=== PATIENT | female | born 1990 | race Caucasian/White ===

== ENCOUNTER 2021-10-05 13:40 | Inpatient (IN) | payer OTHER, SELFPAY ==
--- NOTE | 2021-09-29 17:01 | HP.PCM_ITS ---
History and Physical Date of Admission: 10/05/21 HPI: The patient is a 31 year old female presenting for pre-operative visit. She is scheduled for , for 39 weeks, previous c/s on 10/05/21. Procedure discussed along with risks, benefits and complications. Other alternatives discussed for management. Consent form signed? Yes. ? ? PAST MEDICAL HISTORY PAST MEDICAL HISTORY Diagnosis Date ? Mitral valve prolapse ? ? depression ? ? ? PAST SURGICAL HISTORY PAST SURGICAL HISTORY Procedure Laterality Date ? DELIVERY ONLY ? 11/19/2015 ? , low transverse ? PAST SURGICAL HISTORY OF ? ? ? tubes in both ears ? PAST SURGICAL HISTORY OF ? ? ? wisdom teeth ? REVISE MEDIAN N/CARPAL TUNNEL SURG Right 08/2019 ? ? ? CURRENT MEDICATIONS Current Outpatient Medications Medication Sig Dispense Refill ? loratadine (CLARITIN ORAL) Take by mouth. ? ? ? multivitamin (CLASSIC ) 28 mg iron- 800 mcg tab(s) Take 1 tablet by mouth once daily. ? ? ? sertraline (ZOLOFT) 50 mg tablet Take 1 tablet by mouth once daily. 30 tablet 5 ? No current facility-administered medications for this visit. ? ? ALLERGIES: Patient has no known allergies. ? PERSONAL HISTORY: SOCIAL HISTORY Social History ? Tobacco Use ? Smoking status: Never Smoker ? Smokeless tobacco: Never Used Vaping Use ? Vaping Use: Never used Substance Use Topics ? Alcohol use: Yes ? ? Comment: not while ? Drug use: No ? FAMILY HISTORY: FAMILY HISTORY FAMILY HISTORY Problem Relation Age of Onset ? other (IBS) Mother ? ? Hypertension Father ? ? Depression Brother ? ? Alcohol abuse Brother ? ? Heart Maternal Grandmother ? ? Heart Maternal Grandfather ? ? other (bladder cancer) Maternal Grandfather ? ? Cataract Maternal Grandfather ? ? No Known Problems Paternal Grandmother ? ? No Known Problems Paternal Grandfather ? ? No Known Problems Daughter ? ? ? REVIEW OF SYMPTOMS: GENERAL: denies fevers or chills ENDOCRINOLOGY: has not been on steroids Cardiology : denies palpitations or chest pain Respiratory: denies SOB or cough Hematology: denies history of prolonged bleeding or easy bruising or VTE Allergy: Denies history of personal or family history of allergy to anesthesia ? PHYSICAL EXAMINATION: ? VITALS: Blood pressure 120/70, weight 279 lb 3.2 oz (126.6 kg), last menstrual period 01/05/2021. ? GENERAL: The patient is well nourished, well hydrated in no acute distress. , The patient is oriented to time, place, and person. NECK: Supple. No lynphadenopathy, normal thyroid, no thyromegaly. LUNGS: Clear to auscultation bilaterally. no wheezes, rhonchi or rales HEART: Regular rate and rhythm, Normal heart sounds and No murmurs or gallops ABD-soft, nontender, gravid, approp. for gestational age ? ? IMPRESSION: Estimated Date of Delivery: 10/12/21 w/ h/o previous c/s ? PLAN: The risks/benefits/alternatives and personal involved for the planned c- section were reviewed with the patient. Her questions were answered to her satisfaction and she desires to proceed. Consent was signed. I reviewed with her postop instructions and expectations. ? ? I have reviewed and updated past medical and surgical history, medications and allergies Assessment & Plan Assessment/Plan (1) 39 weeks gestation of : (2) Maternal obesity syndrome in third trimester: (3) Adult BMI 45.0-49.9 kg/sq m: (4) Previous section complicating :
[2021-10-05] VITALS (12 sets, daily range): BP systolic 112–145; BP diastolic 54–94; PULSE 83–96; RESP 16–96; TEMP 36.6–37.4; O2SAT 96–99; BMI 48.8
[2021-10-05] MEDS: Lactated Ringers 1,000 ML 999 ML IV (14:45)
[2021-10-05 15:02] LABS: Absolute Lymphocyte Count 1.71 X10^3/uL (0.83-4.51); Absolute Neutrophil Count 7.8 X10^3/uL (2.0-7.7); Basophil# 0.02 X10^3/uL; Basophil% 0.2 % (0-1); Eosinophil# 0.05 X10^3/uL; Eosinophils% 0.5 % (0-5); Hematocrit 37.3 % (37-47); Hemoglobin 12.8 g/dL (12.0-15.0); Lymphocyte # 1.71 X10^3/ul (0.83-4.51); Lymphocyte % 16.3 % (19-41); Mean Corp Hgb Conc 34.3 g/dL (32-36); Mean Corpuscular Hgb 30.7 pg (27.0-32.0); Mean Corpuscular Volume 89.4 fL (81-99); Mean Platelet Vol. 12.7 fl (6.2-12.0); Monocyte# 0.86 X10^3/uL; Monocyte% 8.2 % (0-10); NRBC Flagged by Analyzer 0 % (0-5); Neutrophil # 7.78 X10^3/uL (2.7-7.7); Neutrophil % 74.1 % (47-70); Platelet Count 151 K/mm3 (150-450); RBC Distribution Width CV 13.3 % (11.6-14.6); RBC Distribution Width SD 43.9 fl (35.1-43.9); Red Blood Count 4.17 M/mm3 (4.2-5.4); White Blood Count 10.5 K/mm3 (4.4-11.0)
[2021-10-05] MEDS: Acetaminophen 500 MG Tablet 1000 MG PO ×2 (16:02→22:15)
[2021-10-05] MEDS: Sodium Citrate/Citric Acid 30 ML UDC PO (16:03)
[2021-10-05] MEDS: Lactated Ringers 1,000 ML 150 ML IV (16:46)
--- NOTE | 2021-10-05 17:43 | EX.PCM.OBRPT ---
Assessment & Plan (1) 39 weeks gestation of : (2) Maternal obesity syndrome in third trimester: (3) Adult BMI 45.0-49.9 kg/sq m: (4) Previous section complicating : Maternal Data Information Final SAMMY: 10/12/21 Gestational age: 39 0/7 Details Operative Information Date of Procedure: 10/05/21 Pre-Operative Diagnosis: 39 weeks, previous c/s Post-Operative Diagnosis: same Indications for : Repeat Elective Classification: Scheduled Procedure Type: low transverse sample clerk #1: Hawa Mcdowell Type of Anesthesia: Spinal Anesthesiologist: Anders Paige Antibiotic Given: Ancef 3 grams IV x1 Drain: Toscano to straight drain Estimated Blood Loss: 800 Fluids Replaced: 800 Procedure Start Time: 17:19 Procedure Stop Time: 17:48 Time of Delivery: 17:21 Findings Description of Procedure: The patient was taken to the operating room. She was prepped and draped in the dorsal supine position with a leftward tilt. A Pfannenstiel skin incision was made approximately 2 cm above the symphysis pubis and carried through to underlying layer fascia with the scalpel. The fascia was incised incised in the midline and extended laterally with the Garcia scissors. The fascia was dissected off the rectus muscles with blunt and sharp dissection. The rectus muscles were in the midline and the peritoneum was entered bluntly. The peritoneal incision was stretched and the bladder blade was placed. The uterine incision was made in a low transverse fashion with the scalpel and extended superiorly and inferiorly with blunt dissection. The amniotic membranes were ruptured bluntly and clear amniotic fluid returned. The infant's head was brought to the incision in the flexed position and delivered without difficulty. The remainder of the was delivered with gentle traction and fundal pressure in the standard fashion. The mouth and nares were bulb suctioned. The cord was clamped and cut as the infant was stimulated. Cord clamping was delayed. The infant was handed off to the waiting nursing staff. The placenta was delivered with fundal massage and gentle traction in the standard fashion. The uterus was exteriorized and cleared of all clots and debris. The cervix was dilated with a ring forcep. The uterine incision was closed with #1 Vicryl in a running locked fashion. A second layer of the same suture was used in an imbricating fashion. The incision was examined and was found to be hemostatic. The uterus was placed back into the peritoneal cavity and hemostasis was again confirmed. The rectus muscles were examined and any bleeding was Bovie cauterized. The parietal peritoneum and rectus muscles were closed en bloc with an 0 Vicryl running suture. The surgical teams outer gloves were then changed. The rectus fascia was examined and any bleeding was Bovie cauterized and the rectus fascia was closed with 0 PDS suture in a running standard fashion. The subcutaneous tissue was examining and any bleeding was Bovie cauterized. The subcutaneous tissue was reapproximated with 3-0 Vicryl suture. The skin was closed in a subcuticular fashion by the HEAD BANQUET WAITRESS with me present in the labor and delivery suite. I performed the remainder of the procedure with assistance. All sponge, lap, and needle counts were correct. The patient was taken to her room for recovery in a stable condition. Presentation: Positive for Vertex Amniotic Membrane Rupture Type: Artificial Amniotic Fluid Description: Clear Placental Delivery Description: Spontaneous Placenta Disposition: [facility] Cord Vessel Description: 3 Vessels Cord Entanglement: None A Gender: Female (Chandni, 8lb 6oz) (1 minute): 8 (5 minute): 9 Delayed Cord Clamping: Yes Complications Complications: none Admit VTE Documentation VTE Present on Admission: No VTE Mechan Device Prophylaxis: SCD's VTE Pharm Prophylaxis Ordered: Yes
[2021-10-05] MEDS: Oxytocin 30 units/NS 500 ml 30 UNITS/500 ML IV.SOLN 167 UNITS IV (18:50)
[2021-10-05] MEDS: Ketorolac 30 MG/ML Syringe IV (19:01)
[2021-10-05] MEDS: HYDROmorphone 1 MG/ML Syringe IV (19:02)
--- NOTE | 2021-10-05 19:41 | NURSING ---
Uterus right of midline consistently. Pt states she carried baby off to the right. garner patent and draining, lochia moderate. Will continue to monitor.
[2021-10-05] MEDS: Lactated Ringers 1,000 ML 100 ML IV (21:50)
[2021-10-05] MEDS: Sertraline 100 MG Tablet PO (22:15)
[2021-10-06] VITALS: BP 115/68; PULSE 72; RESP 18; TEMP 36.6; O2SAT 98
[2021-10-06] MEDS: Ketorolac 30 MG/ML Syringe IV ×3 (00:34→13:07)
[2021-10-06 01:40] VITALS: BP 118/63; PULSE 82; RESP 16; TEMP 36.6; O2SAT 97
[2021-10-06] MEDS: Acetaminophen 500 MG Tablet 1000 MG PO ×4 (04:43→23:00)
[2021-10-06 04:45] VITALS: BP 143/76; PULSE 85; RESP 18; TEMP 36.6
[2021-10-06 05:11] LABS: Hematocrit 34.4 % (37-47); Hemoglobin 11.5 g/dL (12.0-15.0); Mean Corp Hgb Conc 33.4 g/dL (32-36); Mean Corpuscular Volume 92.7 fL (81-99); Mean Platelet Vol. 12.8 fl (6.2-12.0); Platelet Count 117 K/mm3 (150-450); RBC Distribution Width CV 13.5 % (11.6-14.6); RBC Distribution Width SD 45.5 fl (35.1-43.9); Red Blood Count 3.71 M/mm3 (4.2-5.4); White Blood Count 12.5 K/mm3 (4.4-11.0)
[2021-10-06] MEDS: Enoxaparin 40 MG/0.4 ML Syringe SC ×2 (06:04→19:04)
[2021-10-06] MEDS: 0.9% Saline Lock 10 ML Syringe IV ×2 (07:07→13:07)
[2021-10-06 08:00] VITALS: BP 135/73; PULSE 88; RESP 18; TEMP 37.3
--- NOTE | 2021-10-06 08:19 | PN.OBGYN_ITS ---
Subjective Subjective Patient seen at bedside. Resting comfortably. Ambulating and voiding without difficulty. Passing flatus. Breast feeding without difficulty. Denies headache, dizziness, SOB or CP. Desires discharge home tomorrow. Objective Data Objective Data Vital Signs: Vital Signs Temp Pulse Resp BP Pulse Ox O2 Del Method 99.2 F H 88 18 135/73 H 97 Room Air 10/06/21 08:00 10/06/21 08:00 10/06/21 08:00 10/06/21 08:00 10/06/21 01:40 10/06/21 08:00 Oxygen Delivery Method Room Air Weight: 275 lb 9.245 oz Body Mass Index (BMI) 48.8 Intake & Output: Intake and Output for Last 24 Hours 10/04/21 10/05/21 10/06/21 23:59 23:59 23:59 Intake Total 3016 / 3016 366.67 / 366.67 Output Total 450 / 450 400 / 400 Balance 2566 / 2566 -33.33 / -33.33 Lab / Micro Data Result Diagrams: 10/06/21 04:55 Labs: Laboratory Results - last 24 hr 10/05/21 14:45: WBC 10.5, RBC 4.17 L, Hgb 12.8, Hct 37.3, MCV 89.4, MCH 30.7, MCHC 34.3, RDW Std Deviation 43.9, RDW Coeff of Johnson 13.3, Plt Count 151, MPV 12.7 H, Immature Gran % (Auto) 0.700, Neut % (Auto) 74.1 H, Lymph % (Auto) 16.3 L, [place] % (Auto) 8.2, Eos % (Auto) 0.5, Baso % (Auto) 0.2, Absolute Neuts (auto) 7.8 H, Absolute Lymphs (auto) 1.71, Nucleated RBC % 0 10/05/21 14:45: Blood Type A POSITIVE, Antibody Screen NEGATIVE 10/06/21 04:55: WBC 12.5 H, RBC 3.71 L, Hgb 11.5 L, Hct 34.4 L, MCV 92.7, MCH 31.0, MCHC 33.4, RDW Std Deviation 45.5 H, RDW Coeff of Johnson 13.5, Plt Count 117 L, MPV 12.8 H ROS Eyes Eyes: Denies blurry vision, change in vision or spots in vision ENT HEENT: Denies dizziness or headache(s) Cardiovascular Cardiovascular: Denies abdominal pain, chest pain or dyspnea Respiratory/Chest Respiratory/Chest: Denies cough, dyspnea, shortness of breath at rest or shortness of breath with exertion Gastrointestinal Gastrointestinal: Denies abdominal pain, diarrhea or vomiting Genitourinary Genitourinary: Denies change in urinary stream, difficulty urinating or dysuria Musculoskeletal Musculoskeletal: Reports none Integumentary Integumentary: Denies rash Neurologic Neurologic: Denies dizziness, headache(s), memory loss or weakness Physical Exam Narrative Dressing is dry and intact Const alert and no apparent distress General Appearance: cooperative and comfortable Exam Limitations: no limitations HEENT normocephalic Eyes General Eye: normal appearance of both eyes Neck full ROM General: normal visual inspection Chest Chest: symmetrical chest wall rise Resp normal respiratory effort and normal air movement Effort and Inspection: symmetric chest movement Auscultation: clear to auscultation bilaterally Cardio regular rate and regular rhythm GI normal to inspection, nondistended, normoactive bowel sounds Back/Spine normal ROM Extremity full ROM and no calf tenderness General Extremity: normal exam except as noted Skin no rashes or lesions noted Neuro CN's II-XII intact bilaterally Psych mental status grossly normal Assessment & Plan (1) Status post repeat low transverse section: (2) Mother currently breast-feeding: (3) Adult BMI 45.0-49.9 kg/sq m: PLAN: Plan POD 1 Repeat C/S Routine care Pain control Ambulation Anticipate discharge home tomorrow
[2021-10-06] MEDS: Senna/Docusate Sodium 1 Tablet PO (10:17)
[2021-10-06 11:20] VITALS: BP 124/72; PULSE 75; RESP 18; TEMP 36.8
--- NOTE | 2021-10-06 12:57 | CM.ED ---
Addendum entered by Carly Burt 10/06/21 15:28: Housing: DANNY, NETO and 2 children reside in a house in [facility]. Transportation: DANNY has access to transportation Supplies: DANNY reports she has all nb supplies including bassinet, crib, carseat, diapers etc. Supports: DANNY reports her supports are her and mother. DANNY's mother resides 1 hour away. NETO's mother resides 20 minutes away and patient said that she has supportive friends who have arranged for meals trains for them when she is discharged home. Education Level: DANNY graduated high school and college. NO learning issues or delays. 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 DANNY will take 4 weeks off during the summer and 8 weeks off when the school year begins. DANNY reports she enjoys her job. Agency Involvement: DANNY reports No JFS, WIC, HMG, Legal or CSB issues. DANNY reports that she has gone to counseling in the past in regards to anxiety concerns for a few months. DANNY said that she went to [facility] in [place] and it was a positive experience. 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 DANNY reports after her first child she felt everything was too much and feeling overwhelmed. DANNY reported that the fob had returned to work and she was alone and anxious about caring for a . MOB said now I know how to do it and the FOB is taking 4 weeks off work to help with the nb. MOB denied SI/HI. DANNY has been on Zoloft for 6 years and reports it is helpful. She plans to continue to take Zoloft . MOB and FOB were educated on PPD, safe sleeping and Shaken Baby syndrome. MOB reports alcohol when not as she drinks wine occasionally. MOB denied any other drug use including nicotine. MOB was bright and reactive. MOB appeared comfortable with the nb and bonding appropriately. No concerns voiced or expressed. Plan: Home at discharge Carly MATUTE Original Note: SALLIE Note Referral Source: Referrral Reason: History of post depression and anxiety SW met with MOB and FOB. MOB gave verbal consent to speak to her in the presence of the FOB. Mom: Grecia PNC: HIEN Bradshaw Control: IUD Baby: Rena Mcgee : 10/05/[birth year] Weight: 8 # 6 ounces Steel Shot Header Operator: ROMMEL Kaur Breast feeding the nb which MOB reports is going good. MOB/FOB's other children: Kain, born in 2015
[2021-10-06] MEDS: Naproxen 500 MG Tablet PO (19:04)
[2021-10-06 20:00] VITALS: BP 141/72; PULSE 91; RESP 16; TEMP 37.4; O2SAT 97
[2021-10-06] MEDS: Sertraline 100 MG Tablet PO (22:57)
[2021-10-07 02:00] VITALS: BP 145/87; PULSE 73; RESP 17; TEMP 36.6; O2SAT 96
[2021-10-07] MEDS: Naproxen 500 MG Tablet PO ×2 (03:03→11:25)
[2021-10-07] MEDS: Acetaminophen 500 MG Tablet 1000 MG PO ×2 (05:03→11:25)
[2021-10-07] MEDS: Enoxaparin 40 MG/0.4 ML Syringe SC (06:28)
--- NOTE | 2021-10-07 09:03 | PCM.DC.SUM ---
Providers Date of Admission: 10/05/21 Primary Care Physician: No Primary Care Phys Reason For Visit: Diagnosis Discharge Diagnosis (1) Status post repeat low transverse section: Status: Acute Code(s): Z98.891 - History of uterine scar from previous surgery Medications at Discharge Home Medications vits,calcium no.78-iron fumarate-folic acid 29 mg-1 mg tablet (Prenatabs FA) 1 tab PO DAILY Check with primary doctor 11/18/15 loratadine 10 mg tablet (Claritin) 10 mg PO DAILY PRN Allergy Symptoms 10/05/21 sertraline 100 mg tablet 1 tab PO DAILY Check with primary doctor 10/05/21 oxycodone 5 mg tablet 5 - 10 mg PO Q4H PRN PRN Pain Score 4-10 3 days #10 tabs 10/07/21 Hospital Course Operations section Summary of Care Provided Hospital Course: Patient here for scheduled repeat section. Hospital course was uneventful. Physical Exam Narrative Dressing with small amount of drainage. Const alert and no apparent distress General Appearance: cooperative and comfortable Exam Limitations: no limitations HEENT normocephalic Eyes General Eye: normal appearance of both eyes Neck full ROM General: normal visual inspection Chest Chest: symmetrical chest wall rise Resp normal respiratory effort and normal air movement Effort and Inspection: symmetric chest movement Auscultation: clear to auscultation bilaterally Cardio regular rate and regular rhythm GI normal to inspection, nondistended, normoactive bowel sounds Back/Spine normal ROM Extremity full ROM and no calf tenderness General Extremity: normal exam except as noted Skin no rashes or lesions noted Neuro CN's II-XII intact bilaterally Psych mental status grossly normal Weight / BMI Weight Weight: 275 lb 9.245 oz Body Mass Index (BMI) 48.8 ABG / Lab / Microbiology Data Result Diagrams: 10/06/21 04:55 D/C Instructions Discharge Diet: No restrictions Discharge Activity: May Not Drive (2 weeks) and May Shower Weight Bearing Status: Weight bearing as tolerated Call your doctor if your incision/area has: Continuous Slow Oozing and Increased Redness Call your doctor if you observe: Fever of 101 or Higher, Inability to urinate, Inability to have a bowel movement, Using more than 1 pad per hour, Shortness of breath, Chest pain, Calf discomfort and Uncontrolled pain Remove Dressing in: 1 week (Come to office) Cleanse incision/area with: Soap & Water Please Follow Up With: Angela Bradshaw MD When: 1 week in office for incision check Meaningful Use Info Meaningful Use Diagnoses (Choose all that apply): None applicable Discharge Plan Admission Admit Date/Time: 10/05/21 13:40 Primary Reason for Your Visit: Repeat Section Attending Provider: Angela Bradshaw Primary Care Provider: Care Physician,No Primary Discharge Orders/Prescriptions Prescriptions: New oxycodone 5 mg Tablet 5 - 10 mg PO Q4H PRN PRN (Reason: Pain Score 4-10) 3 Days Qty: 10 0RF Continued Prenatabs FA 1 TABLET tablet 1 tab PO DAILY sertraline 100 mg tablet 1 tab PO DAILY loratadine [Claritin] 10 mg Tablet 10 mg PO DAILY PRN (Reason: Allergy Symptoms) Referrals / Follow Up: Care Physician,No Primary [Primary Care Provider] - Disposition Disposition (needs filled in before D/C Order can be placed): Home, Self Care
[2021-10-07 09:10] VITALS: BP 122/64; PULSE 79; RESP 16; TEMP 36.7; O2SAT 98
== END 2021-10-07 11:30 | disposition home or self-care (01) | DRG 788 ==
PROVIDERS: Admitting Provider Obstetrics & Gynecology; Visit Provider Obstetrics & Gynecology
PROC: 10D00Z1 Extraction of Products of Conception, Low, Open Approach (ICD-10-PCS; CPT 59514; principal; 2021-10-05 11:45)
DX: O34.211 Maternal care for low transverse scar from previous cesarean delivery (principal); F32.A Depression, unspecified; O99.344 Other mental disorders complicating childbirth; O26.03 Excessive weight gain in pregnancy, third trimester; Z37.0 Single live birth; Z3A.39 39 weeks gestation of pregnancy; Z79.899 Other long term (current) drug therapy; Z87.59 Personal history of other complications of pregnancy, childbirth and the puerperium
CPT/HCPCS: 59025; 59050; 85025; 85027; 86850; 86900; 86901; 99218; 99251; J7120; A4216; G0378; G0463; J2405